=== PATIENT | male | born 1940 | race Caucasian/White ===

== ENCOUNTER 2016-05-24 09:48 | Outpatient (CLI) | payer MEDICARE, OTHER ==
[2016-05-24] MEDS ORDERED: ALBUTEROL SULFATE 2.5 MG/3 ML AMPUL.NEB NEB ONE (10:07)
== END 2016-05-24 09:50 ==
LOC: RT 09:48
PROVIDERS: ATTEND Family Medicine
DX: R06.02 Shortness of breath (principal)
CPT/HCPCS: 94060